=== PATIENT | male | born 1980 | race Caucasian/White ===

== ENCOUNTER 2016-06-18 18:00 | Inpatient (IN) | payer MEDICARE ==
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
--- NOTE | ~2016-06-18 | PN ---
Unit #: [id number] #: [id number] Patient: MANJIT MOREL [id number] [facility] [address] [place] [address] [id number] MR#: [id number] NAME: MANJIT MOREL ROOM: P121 Age: 36 Sex: M Admission Date: 06/18/2016 : 1980 Attending Physician: Alize Barreto M.D. Admitting Physician: Alize Barreto M.D. Primary Care Physician: Primary Care Physician Tabitha EPPERSON NOTES DATE June 21, 2016 DISCUSSION Mr. Morel is a 36-year-old white male, who was seen today and chart was reviewed and the case was discussed with the staff. He has been anxious, withdrawn, and rather seclusive to himself. He has been cooperative with the treatment recommendations and he has been taking the medications and tolerating them fairly well with no reported side effects. MENTAL STATUS EXAMINATION Young white male, who was casually dressed with fair personal hygiene and appears to be in no acute distress or discomfort. He was awake and alert on interaction with intact orientation. His mood is anxious with a congruent affect. His speech is slow and goal-directed. He denies any suicidal or homicidal ideations, and also denies any auditory or visual hallucinations. His insight and judgment remain slightly impaired. TREATMENT PLAN 1. We will continue him on his current medications and treatment protocol, and will monitor his response to the medications, and make further adjustments as needed. 2. We will continue to followup. Dictated by... Donte Rodney/thomas TD: 06/21/2016 11:21 JOB #: [id number] Unit #: [id number] #: [id number] Patient: MANJIT MOREL NATALIO PROGRESS NOTES Page 1 of 1 X Alize Barreto MD PROGRESS NOTE
--- NOTE | ~2016-06-18 | CO ---
Unit #: [id number] #: [id number] Patient: MANJIT HUNTER [id number] [facility] [address] [place] [address] [id number] MR#: [id number] NAME: MANJIT HUNTER ROOM: P121 Age: 36 Sex: M Admission Date: 06/18/2016 : 1980 Attending Physician: Alize Barreto M.D. Primary Care Physician: Primary Care Physician No Consultation Date: 06/19/2016 CONSULTATION REPORT Manjit is a 36-year-old originally admitted because of his illicit drug use. At the time of admission, he had an abscess along his left wrist. This was addressed under his admission H and P. Please see H and P dated 06/19/2016. Dictated by... Ritika Kent P.A.-C. for Donte Ruth/armando TD: 06/24/2016 05:00 JOB #: [id number] CONSULTATION REPORT Page 1 of 1 X Ritika Kent CONSULTATION REPORT
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
--- NOTE | ~2016-06-18 | PN ---
Unit #: [id number] #: [id number] Patient: MANJIT MOREL [id number] [facility] [address] [place] [address] [id number] I MR#: [id number] NAME: MANJIT MOREL ROOM: P121 Age: 36 Sex: M Admission Date: 06/18/2016 : 1980 Attending Physician: Alize Barreto M.D. Admitting Physician: Alize Barreto M.D. Primary Care Physician: Primary Care Physician Tabitha LANCE PROGRESS NOTES DATE 06/20/2016 DISCUSSION Mr. Morel is a 36-year-old, white male who was seen today and chart was reviewed and case was discussed with the staff. He has been anxious, withdrawn and rather seclusive to himself. Meanwhile, he has been cooperative with treatment recommendations. He has been taking medications and tolerating them fairly well with no reported side effects. MENTAL STATUS EXAM Young white male who was casually dressed with fair personal hygiene, appears to be in no acute distress or discomfort. He was awake and alert on interaction with intact orientation. His mood was anxious with congruent affect. He denies any suicidal or homicidal ideation. His insight and judgement remains slightly impaired. TREATMENT PLAN 1. We will continue him on his current medications and treatment protocol. We will monitor his response to the medication and make further adjustments as needed. 2. We will continue to follow up. Dictated by... Donte Rodney/rosanna TD: 06/21/2016 00:54 JOB #: [id number] Unit #: [id number] #: [id number] Patient: MANJIT MOREL RAYMONCLOTILDE PROGRESS NOTES Page 1 of 1 X Alize Barreto MD PROGRESS NOTE
--- NOTE | ~2016-06-18 | DS ---
Unit #: [id number] #: [id number] [facility] [id number] [facility] [address] [place] [address] [id number] MR#: [id number] NAME: MANJIT HUNTER ROOM: P121 Age: 36 Sex: M Admission Date: 06/18/2016 : 1980 Discharge Date: 06/23/2016 Attending Physician: Alize Barreto M.D. Primary Care Physician: Primary Care Physician No DISCHARGE SUMMARY IDENTIFYING DATA Mr. Hunter is a 36-year-old single white male who is a resident of [place], [place] and was transferred to us from [facility] at [facility]. DISCHARGE DIAGNOSES Psychiatric: Schizoaffective disorder, bipolar type, most recent episode depressed, recurrent, moderate, with psychosis. Medical: None. Stressors: Moderate psychosocial stressors. HISTORY OF PRESENT ILLNESS Please see initial psychiatric evaluation for details. PAST PSYCHIATRIC HISTORY Please see initial psychiatric evaluation for details. PAST MEDICAL HISTORY Please see initial psychiatric evaluation for details. HOSPITAL COURSE The patient was admitted to the adult chemical dependency unit at [facility] and was oriented to the hospital environment. Routine p.r.n. medications were initiated, and he was started on Risperdal as a mood stabilizer and antipsychotic and he was closely monitored. He was taking the medications regularly and was tolerating them fairly well and was able to show a decent therapeutic response with improvement in depression and psychosis, and as such, it was decided that he will be discharged home and will continue treatment on an outpatient basis. DISCHARGE MEDICATIONS Risperdal 1 mg b.i.d. for mood disorder. DISCHARGE CONDITION Stable. PROGNOSIS Fair. Dictated by... Alize Barreto M.D. IAA/modl Unit #: [id number] #: [id number] Patient: MANJIT HUNTER TD: 06/23/2016 09:36 JOB #: [id number] DISCHARGE SUMMARY Page 1 of 1 X Alize Barreto MD X DISCHARGE SUMMARY
--- NOTE | ~2016-06-18 | PN ---
Unit #: [id number] #: [id number] Patient: MANJIT MOREL [id number] [facility] [address] [place] [address] [id number] MR#: [id number] NAME: MANJIT MOREL ROOM: P121 Age: 36 Sex: M Admission Date: 06/18/2016 : 1980 Attending Physician: Alize Barreto M.D. Admitting Physician: Alize Barreto M.D. Primary Care Physician: Primary Care Physician Tabitha LANCE PROGRESS NOTES DATE 06/22/2016 DISCUSSION Mr. Morel is a 36-year-old, white male who was seen today and chart was reviewed and case was discussed with the staff who reports the patient remains seclusive to himself and does not come out participating in any treatment related activities and he pretty much is not doing much except that he just lays and sleeps in his bed. However, he has been taking medication and tolerating them fairly well. MENTAL STATUS EXAM Young white male who was casually dressed with fair personal hygiene, appears to be in no acute distress or discomfort. He was awake and alert on interaction with intact orientation. His mood was anxious with congruent affect. He denies any suicidal or homicidal ideation. Also, denies any auditory or visual hallucinations. His insight and judgement remains slightly impaired. TREATMENT PLAN 1. We will continue him on his current medications and treatment protocol. We will monitor his response to the medication and make further adjustments as needed. 2. We will continue to follow up. Dictated by... Donte Rodney/rosanna TD: 06/22/2016 22:40 JOB #: [id number] Unit #: [id number] #: [id number] Patient: MANJIT MOREL NATALIO PROGRESS NOTES Page 1 of 1 X Alize Barreto MD PROGRESS NOTE
[2016-06-19 09:45] LABS: BASOPHIL# 0.1 X10e3 (0-0.3); BASOPHIL% 1.2 % (0-2.5); EOSINOPHIL# 0.2 X10e3 (0-0.7); EOSINOPHIL% 2.4 % (0.0-7.0); HEMATOCRIT 41.3 % (38.0-50.0); HEMOGLOBIN 13.8 gm/dL (13.0-16.0); LYMPHOCYTE# 2.6 X10e3 (1.0-3.5); MEAN CELL VOLUME 84.5 FL (83-96); MEAN CORPUSCULAR HEMOGLOBIN 28.4 PG (28-34); MEAN CORPUSCULAR HGB CONC 33.6 g/dL (30-36); MEAN PLATELET VOLUME 10.8 FL (6.5-11.5); MONOCYTE# 0.9 X10e3 (0-1.0); NEUTROPHIL# 5.2 X10e3 (1.5-7.1); NEUTROPHIL% 57.4 % (40-75); PLATELET COUNT 219 X10e3 (140-420); RED BLOOD COUNT 4.88 X10e (3.90-5.60); RED CELL DISTRIBUTION WIDTH 12.8 % (11.0-15.5)
[2016-06-19 09:52] LABS: DIFF IND NO
[2016-06-19 10:10] LABS: THYROID STIMULATING HORMONE 1.72 uIU/ml (0.34-5.60)
[2016-06-19 10:16] LABS: FREE THYROXIN (T4) 0.75 ng/dL (0.58-1.64)
[2016-06-19 11:02] LABS: ALBUMIN SERUM 3.4 g/dL (3.5-5.0); BILIRUBIN,TOTAL 0.3 mg/dL (0.2-2.0); BUN/CREATININE RATIO 15.71; CREATININE SERUM 0.7 mg/dL (0.6-1.4); GLOM FILT RATE Estimated 119.8 mL/min (>60); POTASSIUM 4.4 mmol/L (3.5-5.1); PROTEIN TOTAL SERUM 6.4 g/dL (6.0-8.3)
== END 2016-06-23 14:14 | disposition home or self-care (01) | DRG 885 ==
LOC: P1S 19:58
PROVIDERS: Psychiatry & Neurology Psychiatry
DX: F25.0 Schizoaffective disorder, bipolar type (principal); F31.32 Bipolar disorder, current episode depressed, moderate; L02.414 Cutaneous abscess of left upper limb; F29 Unspecified psychosis not due to a substance or known physiological condition; F41.9 Anxiety disorder, unspecified; Z91.14 Patient's other noncompliance with medication regimen
CPT/HCPCS: 80053; 84439; 84443; 85025